=== PATIENT | female | born 1965 | race Caucasian/White ===

== ENCOUNTER 2019-01-19 20:23 | Emergency (ER) | payer MEDICAID, OTHER ==
[2019-01-19] MEDS ORDERED: CEPHALEXIN 500 MG CAP PO ONE ×2 (21:38)
--- NOTE | 2019-01-19 21:39 | EDPHY ---
H & P Stated Complaint: Back pain - burning with urination Time Seen by Provider: 01/19/19 21:33 HPI/ROS: CHIEF COMPLAINT: Dysuria, frequency, flank pain HISTORY OF PRESENT ILLNESS: Patient is a 53-year-old healthy female who comes to the emergency department complaining of dysuria, frequency and mild bilateral flank discomfort. She felt chills at home but has not had a fever. No nausea vomiting. No GI symptoms. No vaginal symptoms. Denies risk of . No chest pain or shortness of breath. No abdominal pain. Her symptoms began yesterday and have gradually progressed today. Severity: Moderate Modifying factors: None REVIEW OF SYSTEMS: Constitutional: See HPI EENTM: denies: blurred vision, double vision, nose congestion Respiratory: denies: cough, shortness of breath Cardiac: denies: chest pain, irregular heart rate, lightheadedness, palpitations Gastrointestinal/Abdominal: denies: abdominal pain, diarrhea, nausea, vomiting, blood streaked stools Genitourinary: See HPI Musculoskeletal: denies: joint pain, muscle pain Skin: denies: lesions, rash, jaundice, bruising Neurological: denies: headache, numbness, paresthesia, tingling, dizziness, weakness Hematologic/Lymphatic: denies: blood clots, easy bleeding, easy bruising Immunologic/allergic: denies: HIV/AIDS, transplant 10 systems reviewed and negative except as noted EXAM: GENERAL: Well-appearing, well-nourished and in no acute distress. HEAD: Atraumatic, normocephalic. EYES: Pupils equal round and reactive to light, extraocular movements intact, sclera anicteric, conjunctiva are normal. ENT: TMs normal, nares patent, oropharynx clear without exudates. Moist mucous membranes. NECK: Normal range of motion, supple without lymphadenopathy or JVD. LUNGS: Breath sounds clear to auscultation bilaterally and equal. No wheezes rales or rhonchi. HEART: Regular rate and rhythm without murmurs, rubs or gallops. ABDOMEN: Soft, nontender, normoactive bowel sounds. No guarding, no rebound. No masses appreciated. BACK: No CVA tenderness, no spinal tenderness, step-offs or deformities EXTREMITIES: Normal range of motion, no pitting or edema. No clubbing or cyanosis. NEUROLOGICAL: Cranial nerves II through XII grossly intact. Normal speech, normal gait. 5/5 strength, normal movement in all extremities, normal sensation , normal reflexes PSYCH: Normal mood, normal affect. SKIN: Warm, dry, normal turgor, no visible rashes or lesions. Source: Patient Exam Limitations: No limitations - Personal History LMP (Females 10-55): Unknown Current Tetanus/Diphtheria Vaccine: Yes Current Tetanus Diphtheria and Acellular Pertussis (TDAP): Yes - Medical/Surgical History Hx Asthma: No Hx Chronic Respiratory Disease: No Hx Diabetes: No Hx Cardiac Disease: No Hx Renal Disease: No Hx Cirrhosis: No Hx Alcoholism: No Hx HIV/AIDS: No Hx Splenectomy or Spleen Trauma: No - Family History Significant Family History: No pertinent family hx - Social History Smoking Status: Never smoked Alcohol Use: None Constitutional: Initial Vital Signs Temperature (C) 36.8 C 01/19/19 20:27 Heart Rate 83 01/19/19 20:27 Respiratory Rate 18 01/19/19 20:27 Blood Pressure 140/90 H 01/19/19 20:27 O2 Sat (%) 96 01/19/19 20:27 O2 Delivery Mode Room Air Allergies/Adverse Reactions: No Known Allergies Allergy (Verified 01/19/19 20:26) Home Medications: Medication Instructions Recorded Cephalexin [Keflex] 500 mg PO TID #21 cap 01/19/19 Medical Decision Making ED Course/Re-evaluation: Patient has symptoms consistent with urinary tract infection/pyelo. Her urinalysis is positive. Will send for cultures and started on Keflex. She is well-appearing and has stable vital signs currently. She agrees with this plan and declines further workup or testing at this time. We discussed indications for returning. Differential Diagnosis: Partial list of the Differential diagnosis considered include but were not limited to; urinary tract infection, pyelonephritis and although unlikely based on the history and physical exam, I also considered kidney stone, appendicitis, obstruction, ovarian cyst, , PID, gastroenteritis. I discussed these differential diagnoses and the plan with the patient as well as the usual and expected course. The patient understands that the diagnosis is provisional and that in medicine we are not always correct and that further workup is often warranted. Usual and customary warnings were given. All of the patient's questions were answered. The patient was instructed to return to the emergency department should the symptoms at all worsen or return, otherwise to followup with the physician as we discussed. - Data Points Laboratory Results: 01/19/19 20:41 Urine Color YELLOW Urine Appearance MODERATELY TURBID Urine pH 5.0 (5.0-7.5) Ur Specific [place] 1.024 (1.002-1.030) Urine Protein 2+ H (NEGATIVE) Urine Ketones TRACE H (NEGATIVE) Urine Blood 3+ H (NEGATIVE) Urine Nitrate NEGATIVE (NEGATIVE) Urine Bilirubin NEGATIVE (NEGATIVE) Urine Urobilinogen NEGATIVE EU EU (0.2-1.0) Ur Leukocyte Esterase 3+ H (NEGATIVE) Urine RBC 50-182 /hpf H /hpf (0-3) Urine WBC 50-182 /hpf H /hpf (0-3) Ur Epithelial Cells TRACE /lpf /lpf (NONE-1+) Urine Bacteria 1+ /hpf H /hpf (NONE SEEN) Urine Mucus 2+ /lpf H /lpf (NONE-1+) Urine Glucose NEGATIVE (NEGATIVE) Medications Given: Discontinued Medications Cephalexin HCl (Keflex) 500 mg PO EDNOW ONE PRN Reason: Protocol Stop: 01/19/19 21:39 Last Admin: 01/19/19 21:41 Dose: 500 mg Phenazopyridine HCl (Pyridium) 100 mg PO ONCE ONE Stop: 01/19/19 21:47 Last Admin: 01/19/19 21:58 Dose: 100 mg Departure - Departure Disposition: Home, Routine, Self-Care Clinical Impression: Urinary tract infection Qualifiers: Urinary tract infection type: site unspecified Hematuria presence: without hematuria Qualified Code(s): N39.0 - Urinary tract infection, site not specified Condition: Fair Instructions: Urinary Tract Infection in Women (ED) Referrals: NONE *PRIMARY CARE P,. [Primary Care Provider] - As per Instructions Pippa Henriquez MD [Medical Doctor] - 2-3 days, if not improved Prescriptions: Cephalexin [Keflex] 500 mg PO TID #21 cap
[2019-01-19] MEDS ORDERED: PHENAZOPYRIDINE HCL 100 MG TAB PO ONE (21:46)
[2019-01-19] MEDS ORDERED: PHENAZOPYRIDINE HCL 200 MG TAB ONE (21:47)
[2019-01-19 21:57] VITALS: BP 138/85
== END 2019-01-19 22:01 | disposition home or self-care (01) ==
DX: N39.0 Urinary tract infection, site not specified (principal)

== ENCOUNTER 2019-03-11 17:42 | Emergency (ER) | payer OTHER, MEDICAID | END 2019-03-11 20:48 | disposition home or self-care (01) ==